=== PATIENT | female | born 2000 | race Caucasian/White ===

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

== ENCOUNTER → 2019-06-21 16:22 | Outpatient (CLI) | payer OTHER, SELFPAY ==
[2017-08-27 14:30] VITALS: BMI 37.3
[2019-06-21 18:43] LABS: Vitamin D,25 Hydroxy 24.5 ng/mL (29.95-100.01)
== END ==
PROVIDERS: PCP Family Medicine; Referring Provider Family Medicine; Visit Provider Family Medicine
DX: E55.9 Vitamin D deficiency, unspecified (principal)
CPT/HCPCS: 36415; 82306

== ENCOUNTER → 2020-01-09 15:59 | Outpatient (CLI) | payer OTHER, SELFPAY ==
[2020-01-09 17:27] LABS: Absolute Lymphocyte Count 1.74 X10^3/uL (0.83-4.51); Absolute Neutrophil Count 7.3 X10^3/uL (2.0-7.7); Basophil# 0.03 X10^3/uL; Basophil% 0.3 % (0-1); Eosinophil# 0.07 X10^3/uL; Eosinophils% 0.7 % (0-5); Hematocrit 39.9 % (37-47); Hemoglobin 12.4 g/dL (12.0-15.0); Lymphocyte # 1.74 X10^3/ul (4.0); Mean Corp Hgb Conc 31.1 g/dL (32-36); Mean Corpuscular Hgb 24.8 pg (27.0-32.0); Mean Platelet Vol. 9.8 fl (6.2-12.0); Monocyte# 0.51 X10^3/uL; Monocyte% 5.3 % (0-10); NRBC Flagged by Analyzer 0 % (0-5); Neutrophil # 7.27 X10^3/uL (2.7-7.7); Neutrophil % 75.3 % (47-70); Platelet Count 367 K/mm3 (150-450); RBC Distribution Width CV 15.4 % (11.6-14.6); RBC Distribution Width SD 44.5 fl (35.1-43.9); Red Blood Count 4.99 M/mm3 (4.2-5.4); White Blood Count 9.7 K/mm3 (4.4-11.0)
[2020-01-09 17:28] LABS: Vitamin B12 446 pg/mL (211-911)
[2020-01-09 17:39] LABS: ALB/GLOB Ratio 0.9 RATIO (0.9-2.4); AST(SGOT) 23 U/L (15-37); Alanine Aminotransfer ALT/SGPT 37 U/L (13-56); Alkaline Phosphatase 63 U/L (45-117); Anion Gap 7 (5-15); BUN 13 mg/dL (7-18); BUN/Creat Ratio 15.9 RATIO (10-20); Chloride 106 mmol/L (98-107); Cholesterol 184 mg/dL (200); Creatinine, Serum 0.82 mg/dL (0.55-1.02); EST Glomerular Filtration Rate 94 mL/min (>60); Est Glom Filt Rate - Afr Amer 113 mL/min (>60); Free T3 2.8 pg/mL (2.18-3.98); Globulin 4.5 g/dL (2.2-4.2); Glucose 85 mg/dL (74-106); High Density Lipoprotein 68 mg/dL; Potassium 3.8 mmol/L (3.5-5.1); Protein, Total 8.5 g/dL (6.4-8.2); Sodium Level 139 mmol/L (136-145); T4 Free Direct 1.13 ng/dL (0.76-1.46); Thyroid Stim Hormone (TSH) 0.58 uIU/mL (0.358-3.74); Triglycerides 96 mg/dL; Very Low Density Lipoprotein 19 mg/dL (5-40)
== END ==
PROVIDERS: PCP Family Medicine; Visit Provider Family Medicine
DX: R53.83 Other fatigue (principal); Z13.220 Encounter for screening for lipoid disorders; Z51.81 Encounter for therapeutic drug level monitoring; Z83.42 Family history of familial hypercholesterolemia; D64.9 Anemia, unspecified
CPT/HCPCS: 36415; 80053; 80061; 82607; 84439; 84443; 84481; 85025

== ENCOUNTER 2020-09-12 10:00 | Outpatient (RCR) | payer OTHER, SELFPAY | END 2020-10-17 23:59 | LOC: IMMUN 10:00 | PROVIDERS: PCP Family Medicine; Referring Provider Family Medicine; Visit Provider Family Medicine | DX: Z23 Encounter for immunization (principal) | CPT/HCPCS: 0001A; 91300 ==

== ENCOUNTER → 2020-12-24 08:31 | Outpatient (CLI) | payer OTHER, SELFPAY ==
[2020-10-31 13:29] VITALS: BMI 37.3
[2020-12-24 10:28] LABS: Absolute Lymphocyte Count 3.08 X10^3/uL (0.83-4.51); Absolute Neutrophil Count 6.1 X10^3/uL (2.0-7.7); Basophil# 0.04 X10^3/uL; Basophil% 0.4 % (0-1); Eosinophil# 0.14 X10^3/uL; Eosinophils% 1.4 % (0-5); Hematocrit 36.1 % (37-47); Hemoglobin 11.2 g/dL (12.0-15.0); Lymphocyte # 3.08 X10^3/ul (0.83-4.51); Lymphocyte % 31.1 % (19-41); Mean Corpuscular Hgb 24.9 pg (27.0-32.0); Mean Corpuscular Volume 80.2 fL (81-99); Mean Platelet Vol. 10.2 fl (6.2-12.0); Monocyte# 0.55 X10^3/uL; Monocyte% 5.6 % (0-10); NRBC Flagged by Analyzer 0 % (0-5); Neutrophil # 6.05 X10^3/uL (2.7-7.7); Neutrophil % 61.1 % (47-70); Platelet Count 328 K/mm3 (150-450); RBC Distribution Width CV 14.9 % (11.6-14.6); RBC Distribution Width SD 43.5 fl (35.1-43.9); White Blood Count 9.9 K/mm3 (4.4-11.0)
[2020-12-24 13:07] LABS: ALB/GLOB Ratio 0.8 RATIO (0.9-2.4); AST(SGOT) 13 U/L (15-37); Alanine Aminotransfer ALT/SGPT 26 U/L (13-56); Albumin, Serum 3.4 g/dL (3.2-5.0); Alkaline Phosphatase 52 U/L (45-117); Anion Gap 7 (5-15); BUN 15 mg/dL (7-18); BUN/Creat Ratio 25.6 RATIO (10-20); Calcium,Total 8.4 mg/dL (8.5-10.1); Chloride 107 mmol/L (98-107); Creatinine, Serum 0.59 mg/dL (0.55-1.02); EST Glomerular Filtration Rate 137 mL/min (>60); Est Glom Filt Rate - Afr Amer 165 mL/min (>60); Free T3 2.9 pg/mL (2.18-3.98); Glucose 87 mg/dL (74-106); Potassium 3.4 mmol/L (3.5-5.1); Prolactin 15.3 ng/mL; Protein, Total 7.4 g/dL (6.4-8.2); Sodium Level 139 mmol/L (136-145); T4 Free Direct 1.04 ng/dL (0.76-1.46); Thyroid Stim Hormone (TSH) 1.98 uIU/mL (0.358-3.74)
[2020-12-28 10:54] LABS: Testosterone Free 2.7 pg/mL (0.0-4.2)
[2020-12-28 21:05] LABS: 17-Hydroxyprogesterone 27 ng/dL (.)
== END ==
PROVIDERS: PCP Family Medicine; Referring Provider Family Medicine; Visit Provider Family Medicine
DX: E03.9 Hypothyroidism, unspecified (principal); E66.9 Obesity, unspecified; N91.5 Oligomenorrhea, unspecified; N93.8 Other specified abnormal uterine and vaginal bleeding; E74.39 Other disorders of intestinal carbohydrate absorption
CPT/HCPCS: 36415; 80053; 82533; 82627; 83498; 84146; 84402; 84403; 84439; 84443; 84481; 85025; 82626

== ENCOUNTER → 2021-01-29 | Outpatient (CLI) | payer OTHER, SELFPAY | END | disposition home or self-care (01) | LOC: LABSPEC 01-30 07:51 | PROVIDERS: Visit Provider Physician Assistant Surgical | DX: J02.9 Acute pharyngitis, unspecified (principal) | CPT/HCPCS: 87635; U0005; U0003 ==

== ENCOUNTER → 2021-09-12 | Outpatient (CLI) | payer OTHER, SELFPAY ==
[2021-09-12 10:28] LABS: Mucous, Urine 0 SEEN /hpf (<or=2+); Red Blood Cells-Urine 0 SEEN /hpf (0-5)
[2021-09-12 10:37] LABS: Color, Urine Yellow (Yellow); Glucose, Dipstick Normal (Normal); Ketone-Dipstick Negative (Negative); Leukocyte Esterase-Dipstick 25 /ul (Negative); Nitrite-Dipstick Negative (Negative); Occult Blood-Urine 10 /ul (Negative); Protein-Dipstick Negative (Negative); Urine Bilirubin Dipstick Negative (Negative); Urine Clarity Sl. Cloudy (Clear); Urine Urobilinogen Normal (Normal)
[2021-09-12 10:43] LABS: Squamous Epithelial Cells - UA 5-10 SEEN /hpf (5-10)
[2021-09-12 10:44] LABS: Bacteria 2+ /hpf (None Seen); White Blood Cells 0-5 SEEN /hpf (0-5)
== END | disposition home or self-care (01) ==
LOC: LABSPEC 10:15
PROVIDERS: Visit Provider Physician Assistant
DX: M54.9 Dorsalgia, unspecified (principal)
CPT/HCPCS: 81001; 87086; 87088

== ENCOUNTER 2022-07-03 10:55 | Day surgery (SDC) | payer OTHER, SELFPAY ==
[2022-07-01 17:01] LABS: Hematocrit 39.1 % (37-47); Hemoglobin 12.1 g/dL (12.0-15.0); Mean Corp Hgb Conc 30.9 g/dL (32-36); Mean Corpuscular Hgb 25.5 pg (27.0-32.0); Mean Corpuscular Volume 82.5 fL (81-99); Mean Platelet Vol. 9.7 fl (6.2-12.0); Platelet Count 330 K/mm3 (150-450); RBC Distribution Width CV 15.3 % (11.6-14.6); RBC Distribution Width SD 46.2 fl (35.1-43.9); Red Blood Count 4.74 M/mm3 (4.2-5.4); White Blood Count 9.9 K/mm3 (4.4-11.0)
--- NOTE | 2022-07-03 07:11 | PCM.HP.BLA ---
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 Denies headache or vision changes, chest pain or shortness of breath, nausea or vomiting, diarrhea or constipation, fevers or chills. 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 Imperforate hymen Surgical history: Denies Medications: None Allergies: NKDA Family history: noncontributory Social history: Denies tobacco, alcohol, drug use Physical exam: Blood pressure 144/71, HR 80, RR 18, Temp 97.8 F, O2 sat 98%on RA General: No acute distress HEENT: Normal cephalic/atraumatic, PERRLA Cardiac: Regular rate and rhythm Respiratory: Clear to auscultation bilaterally Abdomen: Soft, nontender, nondistended Extremities: No edema Neurologic: Cranial nerves II through XII grossly intact, no focal deficits Musculoskeletal: Strength out of 5 throughout extremities Assessment/plan: 22 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 All risk, benefits, alternatives discussed with patient.? Risk include but are not limited to: Risk of bleeding to the point transfusion, infection, injury to surrounding tissue including bowel/bladder/major abdominal vessels, VTE, ICU admission.? Patient aware and consented.?
[2022-07-03 11:23] LABS: Internal QC Validated? YES +Cl - CLEAR BKGD
[2022-07-03 11:26] LABS: Pregnancy, Urine Negative Negative
[2022-07-03] MEDS: Lactated Ringers 1,000 ML 15 ML IV (11:30)
[2022-07-03 11:33] VITALS: BP 144/71; PULSE 80; RESP 18; TEMP 36.6; O2SAT 98; BMI 44.6
--- NOTE | 2022-07-03 12:02 | DCINST_ITS ---
Discharge Instructions Diet Discharge Diet: No restrictions Activity Discharge Activity: Return to Normal Activity and May Shower May resume sexual activity in: 2 weeks Weight Bearing Status: Weight bearing as tolerated Lifting Restrictions: None Dressing / Incision Call your doctor if you observe: Fever of 101 or Higher, Change in Color, Inability to urinate, Using more than 1 pad per hour, Shortness of breath, Dizziness, Swelling in the ankles, Chest pain and Calf discomfort Follow Up Care Please Follow Up With: Anila Graham DO When: 1-2 week postoperative visit Test Results: Test results from this visit will be discussed in further detail at your follow- up appointment, if applicable. Discharge Plan Admission Primary Reason for Your Visit: Removal of hymenal remnant Attending Provider: Anila Graham Primary Care Provider: Cheryl Ortiz Discharge Orders/Prescriptions Prescriptions: New oxycodone 5 mg tablet 5 mg PO Q6H PRN (Reason: pain (scale score 7-10)) 5 Days Qty: 3 0RF Continued bupropion HCl [Wellbutrin SR] 100 mg tablet extended release 12 hr 150 mg PO QAM fluoxetine [Prozac] 40 mg Capsule 40 mg PO DAILY montelukast 10 mg Tablet 10 mg PO DAILY levocetirizine [Xyzal] 5 mg Tablet 5 mg PO DAILY cholecalciferol (vitamin D3) [Vitamin D3] 50 mcg (2,000 unit) Capsule 50 mcg PO DAILY melatonin 5 mg Tablet,Chewable 5 mg PO PRN PRN (Reason: Sleep) Referrals / Follow Up: Cheryl Ortiz DO [Primary Care Provider] -
--- NOTE | 2022-07-03 12:02 | PCM.OPRPT ---
Report of Operation Date of Procedure: 07/03/22 Pre-Operative Diagnosis: Imperforate hymen Post-Operative Diagnosis: Hymenal remnant Surgery/Procedure Performed:: Exam under anesthesia, excision of hymenal remnant Description of Surgical Findings:: Normal-appearing labia. Excess hymenal tissue at 10 to 11 o'clock position. No septate hymen noted. Normal-appearing cervix and vagina. 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 All risk, benefits, alternatives discussed with patient.? Risk include but are not limited to: Risk of bleeding to the point transfusion, infection, injury to surrounding tissue including bowel/bladder/major abdominal vessels, VTE, ICU admission.? Patient aware and consented.? Procedure: Patient taken the operating room and placed under anesthesia. Patient required LMA placement due to amount of sedation required. Patient placed in the dorsal lithotomy position prepped and draped in the usual sterile fashion. Bladder drained 50 cc clear urine, red rubber left in urethra. Exam completed. Noting hymenal remnant 10 to 11 o'clock position. Excess tissue excised with Metzenbaum scissors. Vaginal mucosa reapproximated with suture, hemostatic. Vagina and cervix normal in appearance. Urine output: 50 cc Complications None
[2022-07-03 13:02] VITALS: BP 122/92; BP 144/71; PULSE 74; RESP 18; TEMP 35.9; O2SAT 94
[2022-07-03 13:16] VITALS: BP 126/93; BP 144/71; PULSE 76; RESP 12; O2SAT 96
[2022-07-03 13:31] VITALS: BP 131/90; BP 144/71; PULSE 68; RESP 18; TEMP 36.3; O2SAT 97
[2022-07-03] MEDS: Acetaminophen 500 MG Tablet 1000 MG PO (14:04)
[2022-07-03 14:08] VITALS: BP 120/59; BP 144/71; PULSE 65; RESP 18; TEMP 36.8; O2SAT 100
== END 2022-07-03 14:43 | disposition home or self-care (01) ==
PROVIDERS: Anesthesiology; PCP Family Medicine; Referring Provider Student in an Organized Health Care Education/Training Program; Visit Provider Student in an Organized Health Care Education/Training Program
PROC: (CPT 56700; principal; 2022-07-03 12:15)
DX: Q52.3 Imperforate hymen (principal); Z68.41 Body mass index [BMI] 40.0-44.9, adult; E66.9 Obesity, unspecified; F98.8 Other specified behavioral and emotional disorders with onset usually occurring in childhood and adolescence; K21.9 Gastro-esophageal reflux disease without esophagitis; Z79.899 Other long term (current) drug therapy; F32.A Depression, unspecified; F41.9 Anxiety disorder, unspecified
CPT/HCPCS: 56700; 00940; 36415; 81025; 85027; 86850; 86900; 86901; J7120; J2405

== ENCOUNTER → 2022-07-18 | Outpatient (CLI) | payer OTHER, SELFPAY ==
[2022-07-30 21:31] LABS: HPV Reflexed? NOT INDICATED
== END | disposition home or self-care (01) ==
LOC: LABSPEC 14:51
PROVIDERS: PCP Family Medicine; Visit Provider Student in an Organized Health Care Education/Training Program
DX: Z12.4 Encounter for screening for malignant neoplasm of cervix (principal)
CPT/HCPCS: 88175; G0145

== ENCOUNTER 2023-04-24 10:30 | Outpatient (RCR) | payer OTHER, SELFPAY ==
--- NOTE | 2023-02-02 13:00 | HP.PTEVAL_ITS ---
Patient's Visit Information Visit Information Visit Information: DIOGO CASTANO is a 23 year old F referred to Physical Therapy by Dr. Cheryl Ortiz DO with a diagnosis of LOW BACK, KNEE AND GROIN PAIN. Date of Evaluation: 02/02/23 Physical Therapist: Stephanie Lopez PT, Cert MDT Visit Plan Frequency: 2-3x /Week Duration: 4-6 Months Plan: *CHECK AUTH NEXT VISIT: RECORD # OF VISITS APPROVED AND EXPIRATION DATE. CHECK CODES APPROVED WITH POC* AQUATIC THERAPY FOR PAIN RELEIF, POSTURE CORRECTION/STRENGTHENING, INSTRUCTION IN APPROPRIATE BODY MECHANICS AND ACTIVITY MODIFICATIONS. DLS STARTING WITH A NEUTRAL SPINE PROGRESSING ROM TOLERATED. ADRIANNE LE ROM, STRETCHING AND STRENGTHENING. HEP INSTRUCTION. Subjective Subjective: Work/Leisure: CURRENTLY NOT WORKING. PATIENT REPORTS SHE IS BETWEEN JOBS. 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 PATIENT REPORTS SHE WAS OUT OF THE COUNTRY IN THE [place] FROM MID NOVEMBER UNTIL 01/16/23 SO WAS UNABLE TO WORK DURING THAT TIME. LIVES WITH PARENTS. 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 Disability: NO Present symptoms: ADRIANNE LOW BACK PAIN L > RIGHT. ADRIANNE GROIN/FRONT OF HIP PAIN R > LEFT. ADRIANNE KNEE PAIN R > LEFT. ADRIANNE FOOT AND ANKLE PAIN TOO L > RIGHT. ADRIANNE TOE NUMBNESS L > R. Present since: MIDDLE SCHOOL. Pain Scale: WORST 4/10, LEAST 1/10 Currently: 1/10 Is it getting better, worse or staying the same: GETTING WORSE Commenced as a result of: PUBERTY OR HAVING FLAT FEET. PATIENT REPORTS HER PAIN STARTED WITH FOOT PAIN. Worse: BENDING OVER, WALKING FOR 15 TO 20 MIN, TAKING A SHOWER, STRETCHING ON FLOOR AND ARCHING BACK BACKWARDS, SQUATTING Better: NOT MOVING. Disturbed sleep: NO Previous history/Previous treatment: CUSTOM ORTHOTICS. NO SURGERIES OR INJECTIONS. PHYSICAL THERAPY FOR SCIATICA ABOUT 4 YEARS AGO WITH BENEFIT. NO CHIROPRACTIC. NO PRESCRIPTION MEDICATION. DOES TAKE OTC IBUPROFEN NEEDED. Coughing/sneezing/straining: POSITIVE Gait: PATIENT REPORTS BACK AND R GROIN PAIN START AFTER ABOUT 15 TO 20 MINUTES OF WALKING. NO AD'S. 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 STATES DR. ORTIZ IS AWARE. Imaging: NONE RECENT PMH/Recent major surgery: ANXIETY AND DEPRESSION. ALLERGIES. Objective Objective: Sitting/Standing Posture: POOR. NORMAL LORDOSIS. NO RELEVANT LATERAL SHIFT. Active Correction of posture: WORSE. DOES NOT MAINTAIN BUT ABLE TO FULLY CORRECT. Other Observations: INDEP GAIT AND TRANSFERS. INDEP TRANSFERS SIT TO STAND AND REVERSE WITHOUT UE ASSIST. INDEP GAIT WITH GOOD CADANCE WITHOUT AD OR LOB. Sensory deficit: ADRIANNE LE LIGHT TOUCH SENSATION GROSSLY INTACT AND SYMMETRICAL. ROM deficit: ADRIANNE HS, HIP ADDUCTOR AND GASTROC-SOLEUS COMPLEX TIGHTNESS. Motor deficit: ADRIANNE LE'S GROSSLY 5/5 WITH MMT'ING EXCEPT R HIP 4-/5 AND L 4/5. Dural Signs: NEGATIVE ADRIANNE LE'S. Lumbar mvmt loss: flex - MIN TO MOD ext - MIN R SG -MIN L SG - MIN PATIENT C/O LOW BACK PAIN WITH LUMBAR ROM TESTING ALL PLANES. Core strength: POOR Postural strength: POOR Palpation: TENDERNESS WITH LIGHT PALPATION OF ADRIANNE LUMBAR AND SACRAL REGIONS. NO ACUTE HIP OR KNEE TENDERNESS. Balance/Special Test Scores Oswestry Low Back Score: 4 Goals Goal 1:: DECREASE C/O LOW BACK AND ADRIANNE LE SX'S. Goal Time Frame: 4-6 Weeks Goal 2:: IMPROVE PERSONAL CARE, LIFTING, STANDING, AND WORK/HOMEMAKING FUNCTION Goal Time Frame: 4-6 Weeks Goal 3:: INSTRUCT IN PROPHYLAXIS Goal Time Frame: 4-6 Weeks Anticipated Interventions Patient/Client Instruction: Educate patient on: Condition, Plan of Care and Risk Factors For the Purpose of:: To improve self management Therapeutic Exercise to Include: Strength training, Body mechanics, Postural training, Flexibilty training, Neuromotor development, In an aquatic setting and Dynamic Lumbar Stabilization For the Purpose of:: To decrease pain, To increase ROM, To improve muscle performance and motor function, To increase tolerance to activity/condition/position and To improve ability of physical actions for home/community/work/leisure Text: Thank you for the opportunity to evaluate your patient. For Medicare and Medicare HMO plans, please review the plan of care and approve it. It will need to be FAXED BACK to us at [phone] for Medicare purposes. For Medicare only, by signing this I certify the plan of care. Please let me know if there are questions or concerns regarding this plan of care. Physician Signature: Date:
--- NOTE | 2023-03-03 10:39 | HP.PTREVAL ---
Re-Evaluation Intro: Dr. Cheryl Ortiz, DO, It has been my pleasure to treat DIOGO CASTANO over the last 8 visits for LOW BACK, KNEE AND GROIN PAIN. Please see the progress note below for an update on the physical therapy plan of care! Subjective Subjective: PATIENT REPORTS THAT WHEN SHE GETS PAIN SHE CAN WORK THROUGH IT BETTER NOW. SHE STATES THE PAIN PAIN ISN'T INTENSE. I THINK I HAVE SOME OF THE RESOURCES NOW TO GO ON MY OWN WITH THE EX'S. SHE STATES SHE ALSO THINKS MORE THERAPY MIGHT HELP MORE AND SHE TALKED TO HER DAD ABOUT IT AND HE SAID SHE COULD CONTINUE (SHE STATES SHE IS ON HIS INSURANCE). PATIENT REPORTS WATER THERAPY HAS BEEN HELPING HER MORE THAN ANYTHING ELSE HAS HELPED HER PAIN SO FAR IN THE PAST. SHE STATES SHE THOUGH WEIGHT LOSS WOULD HELP BUT SHE THINKS IT MADE IT WORSE. SHE ALSO STATES PAIN MEDICINE HASN'T HELPED. PATIENT REPORTS SHE FEELS GOOD IN THE WATER AND LIKES THE WATER. SHE STATES SHE WOULD CONSIDER DOING WATER EX ON HER OWN WHEN SHE IS DONE WITH THEREAPY. Objective Objective/Function: PATIENT WAS SEEN TODAY FOR RE-ASSESSMENT OF PROGRESS TOWARD THE SET PT GOALS AND THE NEED FOR FURTHER PHYSICAL THERAPY VS READINESS FOR DISCHARGE. PATIENT HAS MADE PROGRESS TOWARD 2 OF 3 SET GOALS AND IS A GOOD CANDIDATE TO CONTINUE PT BASED ON ROOM FOR FURTHER IMPROVEMENT. SHE DEMO'S IMPROVED LE STRENGTH AND INCREASED LUMBAR ROM. PATIENT IS AGREEABLE TO CONTINUED PT PER POC BELOW. UPON EXAM TODAY: ROM deficit: MILD ADRIANNE HS, HIP ADDUCTOR AND GASTROC-SOLEUS COMPLEX TIGHTNESS. Motor deficit: ADRIANNE LE'S GROSSLY 5/5 WITH MMT'ING EXCEPT ADRIANNE HIPS 4/5. Dural Signs: NEGATIVE ADRIANNE LE'S. Lumbar mvmt loss: flex - MIN ext - NIL R SG -MIN L SG - MIN PATIENT C/O MILD LBP WITH LUMBAR EXT ROM TESTING ONLY TODAY. Core strength: POOR Postural strength: POOR Palpation: MILD CENTRAL AND R L5S1 REGION TENDERNESS TODAY. NO ACUTE HIP OR KNEE TENDERNESS. Plan Plan Plan: *WORK TOWARD INDEP WATER EX PROGRAM* CONT AQUATIC THERAPY 2X'S A WK X 10 VISITS FOR PAIN RELEIF, POSTURE CORRECTION/STRENGTHENING, INSTRUCTION IN APPROPRIATE BODY MECHANICS AND ACTIVITY MODIFICATIONS. DLS STARTING WITH A NEUTRAL SPINE PROGRESSING ROM TOLERATED. ADRIANNE LE ROM, STRETCHING AND STRENGTHENING. HEP INSTRUCTION. Balance/Gait/Functional tests Balance/Special Test Scores Oswestry Low Back Score: 7 Goals Goals Goal 1:: DECREASE C/O LOW BACK AND ADRIANNE LE SX'S. Goal Time Frame: 4-6 Weeks Goal Progress: Progressing Goal 2:: IMPROVE PERSONAL CARE, LIFTING, STANDING, AND WORK/HOMEMAKING FUNCTION Goal Time Frame: 4-6 Weeks Goal Progress: Not Progressing Goal 3:: INSTRUCT IN PROPHYLAXIS Goal Time Frame: 4-6 Weeks Goal Progress: Progressing Anticipated Interventions Anticipated Interventions Patient/Client Instruction: Educate patient on: Condition, Plan of Care and Risk Factors For the Purpose of:: To improve self management Therapeutic Exercise to Include: Strength training, Body mechanics, Postural training, Flexibilty training, Neuromotor development, In an aquatic setting and Dynamic Lumbar Stabilization For the Purpose of:: To decrease pain, To increase ROM, To improve muscle performance and motor function, To increase tolerance to activity/condition/position and To improve ability of physical actions for home/community/work/leisure Re-Evaluation Ending Re-evaluation ending: Please do not hesitate to contact me at [phone] by phone or if you have questions or concerns regarding this new plan of care! Sincerely, Stephanie Lopez, PT, Cert MDT
--- NOTE | 2023-04-24 10:59 | HP.PTDCSUM ---
Discharge Summary D/C summary: It has been my pleasure to treat DIOGO CASTANO referred by Dr. Cheryl Ortiz DO, with the diagnosis of LOW BACK, KNEE AND GROIN PAIN for a total of 18 visit(s). Discharge Date: 04/24/23 Please see the following information for a summary of their discharge status. Subjective Subjective: PATIENT STATES SHE IS GLAD SHE CONTINUED THERAPY AND NOW SHE HAS THE EX'S SHE CAN DO ON HER OWN. Pain Low back: Pain Intensity (Out of 10): 5 R groin: Pain Intensity (Out of 10): 0 LLE: Pain Intensity (Out of 10): 5 Overall Improvement % Improvement: 50 Objective Objective/Function: Objective/Function: PATIENT WAS SEEN TODAY FOR RE-ASSESSMENT OF PROGRESS TOWARD THE SET PT GOALS AND THE NEED FOR FURTHER PHYSICAL THERAPY VS READINESS FOR DISCHARGE. ALL GOALS HAVE BEEN MET AND PATIENT IS INDEP WITH POOL AND HOME EX PROGRAMS. SHE IS APPRORIATE FOR AND AGREABLE TO DISCHARGE. UPON EXAM TODAY: Motor deficit: ADRIANNE LE'S GROSSLY 5/5 WITH MMT'ING. Dural Signs: NEGATIVE ADRIANNE LE'S. Lumbar mvmt loss: flex - NIL ext - NIL R SG -NIL L SG - NIL PATIENT DENIES PAIN WITH LUMBAR ROM TESTING ALL PLANES. Core strength: FAIR Postural strength: FAIR Palpation: NO ACUTE LOWER THORACIC LUMBAR, SACRAL OR HIP TENDERNESS. PATIENT CONTINUES TO HAVE ADRIANNE CALF TIGHTNESS AND HAS STRETCHES FOR HOME. Goals Goal 1:: DECREASE C/O LOW BACK AND ADRIANNE LE SX'S. Goal Progress: Goal Met Goal 2:: IMPROVE PERSONAL CARE, LIFTING, STANDING, AND WORK/HOMEMAKING FUNCTION Goal Progress: Goal Met Goal 3:: INSTRUCT IN PROPHYLAXIS Goal Progress: Goal Met Plan Plan: D/C D/C Information d/c sentence: If there are questions or concerns regarding this patient's physical therapy, please feel free to call me at [phone]. Thank you for the referral of this patient. Sincerely, Stephanie Lopez, PT, Cert MDT Balance/Gait/Functional tests Balance/Special Test Scores Oswestry Low Back Score: 4 Improvement % Improvement: 50
== END 2023-04-24 19:00 | disposition home or self-care (01) ==
LOC: PT 10:30
PROVIDERS: PCP Family Medicine; Visit Provider Family Medicine
DX: M54.50 Low back pain, unspecified (principal); M25.551 Pain in right hip; M25.552 Pain in left hip; M25.561 Pain in right knee; M25.562 Pain in left knee
CPT/HCPCS: 97113; 97162; 97164

== ENCOUNTER 2023-09-18 16:18 | Emergency (ER) | payer OTHER, SELFPAY ==
[2023-09-18 16:18] VITALS: BP 112/82; PULSE 87; RESP 14; TEMP 37.2; O2SAT 97; BMI 35.7
--- NOTE | 2023-09-18 17:42 | CT_ITS ---
EXAM: CT ABDOMEN AND PELVIS WITHOUT INTRAVENOUS CONTRAST CLINICAL INDICATION: L flank Pain TECHNIQUE: Helically acquired images were obtained of the abdomen and pelvis without intravenous contrast. This CT exam was performed using one or more of the following dose reduction techniques: automated exposure control, adjustment of the mA and/or kV according to patient size, and/or use of iterative reconstruction technique. COMPARISON: No relevant prior studies available. FINDINGS: LOWER THORAX: Unremarkable. Lung bases are clear. No cardiomegaly. No significant pericardial effusion. ABDOMEN: LIVER: Unremarkable. Homogeneous. GALLBLADDER AND BILE DUCTS: Unremarkable. No calcified gallstones. No gallbladder distention or wall edema. No intra- or extrahepatic biliary ductal dilation. PANCREAS: Unremarkable. No focal cystic mass. SPLEEN: Unremarkable. Normal size without focal cystic or solid mass. ADRENALS: Unremarkable. No nodules. KIDNEYS AND URETERS: Mild left-sided hydronephrosis and hydroureter. Normal renal size and position. STOMACH AND BOWEL: Unremarkable. No stomach or bowel distention. No focal inflammatory change. PELVIS: APPENDIX: No evidence of acute appendicitis. BLADDER: There is a tiny 1 mm calcification in the bladder at the level of the left orifice. REPRODUCTIVE: Unremarkable as visualized. No mass. ABDOMEN and PELVIS: INTRAPERITONEAL SPACE: There is a mild amount of free fluid in the pelvis. No free air. BONES/JOINTS: Unremarkable. No suspicious lytic or blastic abnormality. SOFT TISSUES: Unremarkable. No discrete abdominal or pelvic wall hernia. VASCULATURE: Unremarkable. Abdominal aorta is non-dilated. LYMPH NODES: Unremarkable. No enlarged lymph nodes. CT/Abdomen/Pelvis without Cont IMPRESSION: Obstruction of the left collecting system due to a 1 mm stone in the bladder at the level of the left orifice. There is mild left-sided hydronephrosis and hydroureter. Electronically Signed: Jerome Masters MD at 19:33 EDT ,
[2023-09-18 18:18] VITALS: BP 109/99; PULSE 82; RESP 16; O2SAT 98
[2023-09-18] MEDS: Ketorolac 30 MG/ML Syringe 15 MG IV (18:18)
[2023-09-18] MEDS: 0.9% Normal Saline (1000mL) 1,000 ML 1000 ML IV (18:18)
[2023-09-18] MEDS: Ondansetron 4 MG/2 ML Vial IV (18:18)
[2023-09-18] MEDS: Morphine 4 MG/ML Syringe IV (18:19)
[2023-09-18 18:28] LABS: Absolute Lymphocyte Count 1.01 X10^3/uL (0.83-4.51); Absolute Neutrophil Count 7.7 X10^3/uL (2.0-7.7); Basophil# 0.03 X10^3/uL; Basophil% 0.3 % (0-1); Eosinophil# 0.05 X10^3/uL; Eosinophils% 0.5 % (0-5); Hematocrit 37.2 % (37-47); Lymphocyte # 1.01 X10^3/ul (0.83-4.51); Mean Corp Hgb Conc 32.3 g/dL (32-36); Mean Corpuscular Volume 83.8 fL (81-99); Mean Platelet Vol. 10.2 fl (6.2-12.0); Monocyte# 0.39 X10^3/uL; Monocyte% 4.2 % (0-10); NRBC Flagged by Analyzer 0 % (0-5); Neutrophil # 7.67 X10^3/uL (2.7-7.7); Neutrophil % 83.6 % (47-70); Platelet Count 244 K/mm3 (150-450); RBC Distribution Width CV 13.5 % (11.6-14.6); RBC Distribution Width SD 41.6 fl (35.1-43.9); Red Blood Count 4.44 M/mm3 (4.2-5.4); White Blood Count 9.2 K/mm3 (4.4-11.0)
--- NOTE | 2023-09-18 18:34 | EDS_ITS ---
HPI <RITA Caraballo - Last Filed: 09/18/23 21:12> History of Present Illness Chief Complaint: Abd Pain Narrative Narrative: Patient presenting today due to left flank pain that radiates to her left lower quadrant and left groin that started around 3 PM. The pain has been constant and gradually worsening. She denies any history of kidney stones or previous abdominal surgeries. She reports that she has had a few episodes of nausea and vomiting due to the pain. She is currently on her menstrual period. She denies any fevers, chills, hematemesis, diarrhea, and urinary symptoms. PFSH <RITA Caraballo - Last Filed: 09/18/23 21:12> [facility] Medical History Abdominal pain Acne ADD (attention deficit disorder) Anxiety Cat allergies Depression Dust allergy Fatigue History of pain when walking History of palpitations Impacted cerumen of both ears Lab test negative for COVID-19 virus Leg cramps Migraine headache Non-smoker Restless legs Shortness of breath Shortness of breath on exertion Strain, back Wears glasses Home Medications bupropion HCl 100 mg tablet,12 hr sustained-release (Wellbutrin SR) 150 mg PO QAM 07/30/17 [History Last Taken Unknown] cholecalciferol (vitamin D3) 50 mcg (2,000 unit) capsule (Vitamin D3) 50 mcg PO DAILY 07/02/22 [History Last Taken Unknown] fluoxetine 40 mg capsule (Prozac) 40 mg PO DAILY 07/02/22 [History Last Taken Unknown] levocetirizine 5 mg tablet (Xyzal) 5 mg PO DAILY 07/02/22 [History Last Taken Unknown] melatonin 5 mg chewable tablet 5 mg PO PRN PRN Sleep 07/02/22 [History Last Taken Unknown] montelukast 10 mg tablet 10 mg PO DAILY 07/02/22 [History Last Taken Unknown] oxycodone 5 mg tablet 5 mg PO Q6H PRN pain (scale score 7-10) 5 days #3 tabs 07/03/22 [Rx Last Taken Unknown] dexamethasone 6 mg tablet 6 mg PO DAILY #5 tabs 05/06/23 [Rx Last Taken Unknown] Allergy/AdvReac Type Severity Reaction Status Date / Time No Known Allergies Allergy Verified 09/18/23 16:19 Surgical History No history of previous surgery Social History Smoking Status: Never smoker alcohol intake: never ROS <RITA Caraballo - Last Filed: 09/18/23 21:12> ROS ED Constitutional Constitutional ED: Denies chills or fever(s) Cardiovascular Cardiovascular: Denies chest pain Respiratory/Chest Respiratory/Chest: Denies cough or dyspnea Gastrointestinal Gastrointestinal: Reports abdominal pain, nausea and vomiting; Denies constipation or diarrhea Genitourinary Genitourinary ED: Denies dysuria, hematuria or urinary urgency Musculoskeletal Musculoskeletal: Reports back pain Integumentary Denies rash Neurologic Neurologic: Denies weakness EXAM <RITA Caraballo - Last Filed: 09/18/23 21:12> Physical Exam Const Vital Signs: 09/18/23 16:18 09/18/23 18:18 09/18/23 20:00 Temperature 99 F Temperature Source Temporal Pulse Rate 87 82 71 Respiratory Rate 14 16 14 Blood Pressure 112/82 H 109/99 H 130/64 H Blood Pressure Mean 92 102 86 Pulse Ox 97 98 97 Oxygen Delivery Method Room Air Room Air Room Air 09/18/23 20:49 Temperature 98.1 F Temperature Source Pulse Rate 91 Respiratory Rate 16 Blood Pressure 138/62 H Blood Pressure Mean 87 Pulse Ox 98 Oxygen Delivery Method <Dr. Franklyn Childers MD - Last Filed: 09/19/23 00:46> Physical Exam Const Vital Signs: 09/18/23 16:18 09/18/23 18:18 09/18/23 20:00 Temperature 99 F Temperature Source Temporal Pulse Rate 87 82 71 Respiratory Rate 14 16 14 Blood Pressure 112/82 H 109/99 H 130/64 H Blood Pressure Mean 92 102 86 Pulse Ox 97 98 97 Oxygen Delivery Method Room Air Room Air Room Air 09/18/23 20:49 Temperature 98.1 F Temperature Source Pulse Rate 91 Respiratory Rate 16 Blood Pressure 138/62 H Blood Pressure Mean 87 Pulse Ox 98 Oxygen Delivery Method MDM <RITA Caraballo - Last Filed: 09/18/23 21:12> MDM MDM Narrative Medical decision making narrative: Patient presenting today with left-sided flank pain that started around 3 PM. She does appear to be uncomfortable. She denies any history of kidney stones but examination is concerning for a kidney stone. Labs will be obtained to rule out leukocytosis, anemia, electrolyte abnormality, SANTANA, and UTI. CT scan of the abdomen and pelvis will be obtained to rule out kidney stone, ovarian cyst, diverticulitis, and other etiology. She was given IV fluids, Toradol, Zofran, and morphine. She does have a 1 mm stone in the bladder. On reexamination she reports improvement of her symptoms. She does not have a UTI. Given her stone has passed, she will be discharged home in stable condition. She can alternate Tylenol and ibuprofen for any residual pain as needed. She is comfortable with plan. Lab Data Attestation: I reviewed the patient's lab results. Labs: Laboratory Results - last 24 hr 09/18/23 09/18/23 18:10 19:40 WBC 9.2 RBC 4.44 Hgb 12.0 Hct 37.2 MCV 83.8 MCH 27.0 MCHC 32.3 RDW Std Deviation 41.6 RDW Coeff of Loli 13.5 Plt Count 244 MPV 10.2 Immature Gran % (Auto) 0.400 Neut % (Auto) 83.6 H Lymph % (Auto) 11.0 L [place] % (Auto) 4.2 Eos % (Auto) 0.5 Baso % (Auto) 0.3 Absolute Neuts (auto) 7.7 Absolute Lymphs (auto) 1.01 Nucleated RBC % 0 Sodium 139 Potassium 4.1 Chloride 107 Carbon Dioxide 25.0 Anion Gap 7 BUN 13 Creatinine 0.92 Estim Creat Clear Calc 132.48 Est GFR (MDRD) Af Amer 96 Est GFR (MDRD) Non-Af 80 BUN/Creatinine Ratio 14.2 Glucose 111 H Calcium 8.9 Serum , Qual NEGATIVE Urine Color Yellow Urine Clarity Clear Urine pH 7.0 Ur Specific [place] 1.010 Urine Protein Negative Urine Glucose (UA) Normal Urine Ketones 15 H Urine Occult Blood 250 H Urine Nitrite Negative Urine Bilirubin Negative Urine Urobilinogen Normal Ur Leukocyte Esterase Negative Urine RBC 10-25 SEEN Urine WBC 0 SEEN Ur Squamous Epith Cells 0-5 SEEN Urine Bacteria 0 SEEN Urine Mucus RARE Radiography Diagnostic Testing: Clinical Impression(s) from Imaging Studies Abdomen/Pelvis CT 09/18/23 17:42 IMPRESSION: Obstruction of the left collecting system due to a 1 mm stone in the bladder at the level of the left orifice. There is mild left-sided hydronephrosis and hydroureter. Electronically Signed: Jerome Masters MD at 19:33 EDT , <Dr. Franklyn Childers MD - Last Filed: 09/19/23 00:46> [facility] MDM Narrative Medical decision making narrative: Patient presenting today with left-sided flank pain that started around 3 PM. She does appear to be uncomfortable. She denies any history of kidney stones but examination is concerning for a kidney stone. Labs will be obtained to rule out leukocytosis, anemia, electrolyte abnormality, SANTANA, and UTI. CT scan of the abdomen and pelvis will be obtained to rule out kidney stone, ovarian cyst, diverticulitis, and other etiology. She was given IV fluids, Toradol, Zofran, and morphine. She does have a 1 mm stone in the bladder. On reexamination she reports improvement of her symptoms. She does not have a UTI. Given her stone has passed, she will be discharged home in stable condition. She can alternate Tylenol and ibuprofen for any residual pain as needed. She is comfortable with plan. I have personally performed a face to face assessment of the patient and have reviewed the HUSAM Note. I performed a substantive portion of the visit including all aspects of the following. My ruiz findings include: History is remarkable for left flank pain. She had pain also in the left vaginal region. She denies dysuria, frequency, urgency or hematuria. She does report nausea and vomiting. She denies fever, chills night sweats. Exam is remarkable patient unable to find position of comfort. There is no CVA tenderness. There is no left-sided abdominal pain. There is no jing lymphadenopathy. Medical Decision Making differential diagnosis would include ruptured ovarian cyst, ovarian torsion, ectopic , ureteral stone and pain of unknown etiology. Other additions or changes: CT was reviewed by me. Patient has a small 1 mm stone noted in the bladder. Plan is to discharge to home Lab Data Labs: Laboratory Results - last 24 hr 09/18/23 09/18/23 18:10 19:40 WBC 9.2 RBC 4.44 Hgb 12.0 Hct 37.2 MCV 83.8 MCH 27.0 MCHC 32.3 RDW Std Deviation 41.6 RDW Coeff of [place] 13.5 Plt Count 244 MPV 10.2 Immature Gran % (Auto) 0.400 Neut % (Auto) 83.6 H Lymph % (Auto) 11.0 L [place] % (Auto) 4.2 Eos % (Auto) 0.5 Baso % (Auto) 0.3 Absolute Neuts (auto) 7.7 Absolute Lymphs (auto) 1.01 Nucleated RBC % 0 Sodium 139 Potassium 4.1 Chloride 107 Carbon Dioxide 25.0 Anion Gap 7 BUN 13 Creatinine 0.92 Estim Creat Clear Calc 132.48 Est GFR (MDRD) Af Amer 96 Est GFR (MDRD) Non-Af 80 BUN/Creatinine Ratio 14.2 Glucose 111 H Calcium 8.9 Serum , Qual NEGATIVE Urine Color Yellow Urine Clarity Clear Urine pH 7.0 Ur Specific [place] 1.010 Urine Protein Negative Urine Glucose (UA) Normal Urine Ketones 15 H Urine Occult Blood 250 H Urine Nitrite Negative Urine Bilirubin Negative Urine Urobilinogen Normal Ur Leukocyte Esterase Negative Urine RBC 10-25 SEEN Urine WBC 0 SEEN Ur Squamous Epith Cells 0-5 SEEN Urine Bacteria 0 SEEN Urine Mucus RARE Radiography Diagnostic Testing: Clinical Impression(s) from Imaging Studies Abdomen/Pelvis CT 09/18/23 17:42 IMPRESSION: Obstruction of the left collecting system due to a 1 mm stone in the bladder at the level of the left orifice. There is mild left-sided hydronephrosis and hydroureter. Electronically Signed: Jerome Masters MD at 19:33 EDT , Discharge Plan Triage Chief Complaint: Abd Pain ED Midlevel Provider: Kim Christianson ED Provider: Franklyn Childers Dx/Rx/DC Orders Clinical Impression: Hydronephrosis with urinary obstruction due to ureteral calculus, Nausea & vomiting Instructions: ED Kidney Stone, Passed Prescriptions: No Action bupropion HCl [Wellbutrin SR] 100 mg tablet extended release 12 hr 150 mg PO QAM dexamethasone 6 mg tablet 6 mg PO DAILY Qty: 5 0RF fluoxetine [Prozac] 40 mg Capsule 40 mg PO DAILY montelukast 10 mg Tablet 10 mg PO DAILY levocetirizine [Xyzal] 5 mg Tablet 5 mg PO DAILY cholecalciferol (vitamin D3) [Vitamin D3] 50 mcg (2,000 unit) Capsule 50 mcg PO DAILY melatonin 5 mg Tablet,Chewable 5 mg PO PRN PRN (Reason: Sleep) oxycodone 5 mg tablet 5 mg PO Q6H PRN (Reason: pain (scale score 7-10)) 5 Days Qty: 3 0RF Primary Care Provider: Cheryl Ortiz Referrals: Cheryl Ortiz DO [Primary Care Provider] - 5-7 Days Activity Restrictions/Additional Instructions: Alternate Tylenol and ibuprofen for your pain as needed. Disposition Disposition: Home, Self Care Discharge Date/Time: 09/18/23 20:57
[2023-09-18 18:42] LABS: Anion Gap 7 (5-15); BUN 13 mg/dL (7-18); BUN/Creat Ratio 14.2 RATIO (10-20); Calcium,Total 8.9 mg/dL (8.5-10.1); Chloride 107 mmol/L (98-107); Creatinine, Serum 0.92 mg/dL (0.55-1.02); EST Glomerular Filtration Rate 80 mL/min (>60); Est Glom Filt Rate - Afr Amer 96 mL/min (>60); Estimated Creatinine Clearance 132.48 ml/min; Glucose 111 mg/dL (74-106); Potassium 4.1 mmol/L (3.5-5.1); Sodium Level 139 mmol/L (136-145)
[2023-09-18 18:43] LABS: Internal QC Validated? YES +Cl - CLEAR BKGD; Pregnancy, Serum, hCG Quali. NEGATIVE Negative
[2023-09-18 20:00] VITALS: BP 130/64; PULSE 71; RESP 14; O2SAT 97
[2023-09-18 20:00] LABS: Bacteria 0 SEEN /hpf (None Seen); White Blood Cells 0 SEEN /hpf (0-5)
[2023-09-18 20:17] LABS: Color, Urine Yellow (Yellow); Glucose, Dipstick Normal (Normal); Ketone-Dipstick 15 mg/dl (Negative); Leukocyte Esterase-Dipstick Negative /ul (Negative); Nitrite-Dipstick Negative (Negative); Occult Blood-Urine 250 /ul (Negative); Protein-Dipstick Negative (Negative); Urine Bilirubin Dipstick Negative (Negative); Urine Clarity Clear (Clear); Urine Urobilinogen Normal (Normal)
[2023-09-18 20:23] LABS: Mucous, Urine RARE /hpf (<or=2+); Red Blood Cells-Urine 10-25 SEEN /hpf (0-5); Squamous Epithelial Cells - UA 0-5 SEEN /hpf (5-10)
[2023-09-18 20:49] VITALS: BP 138/62; PULSE 91; RESP 16; TEMP 36.7; O2SAT 98
[2023-09-18] MEDS: Ibuprofen 600 MG Tablet PO (20:54)
== END 2023-09-18 20:57 | disposition home or self-care (01) ==
PROVIDERS: Physician Assistant; Emergency Provider Emergency Medicine; PCP Family Medicine; Visit Provider Emergency Medicine
DX: N13.2 Hydronephrosis with renal and ureteral calculous obstruction (principal); R11.2 Nausea with vomiting, unspecified; F32.A Depression, unspecified; Z79.899 Other long term (current) drug therapy
CPT/HCPCS: 74176; 80048; 81001; 84703; 85025; 99282; J7030; A4216; J2405

== ENCOUNTER → 2025-01-11 | Outpatient (CLI) | payer BC, SELFPAY | END | disposition home or self-care (01) | LOC: LABSPEC 14:31 | PROVIDERS: PCP Family Medicine; Visit Provider Nurse Practitioner | DX: R30.0 Dysuria (principal) | CPT/HCPCS: 87086; 87088; 87186 ==

== ENCOUNTER → 2025-04-05 | Outpatient (CLI) | payer BC, SELFPAY ==
[2025-04-05 15:23] LABS: Hematocrit 33.2 % (37-47); Hemoglobin 10.8 g/dL (12.0-15.0); Immature Granulocytes Count 0.020 X10^3/uL (0.0-0.0); Mean Corp Hgb Conc 32.5 g/dL (32-36); Mean Corpuscular Volume 82.2 fL (81-99); Mean Platelet Vol. 10.0 fl (6.2-12.0); NRBC Flagged by Analyzer 0 % (0-5); Platelet Count 218 K/mm3 (150-450); RBC Distribution Width CV 13.7 % (11.6-14.6); RBC Distribution Width SD 41.1 fl (35.1-43.9); Red Blood Count 4.04 M/mm3 (4.2-5.4); White Blood Count 5.7 K/mm3 (4.4-11.0)
[2025-04-05 16:35] LABS: AST(SGOT) 16 U/L (<=31); Alanine Aminotransfer ALT/SGPT 14 U/L (<=34); Albumin, Serum 4.3 g/dL (3.5-5.0); Alkaline Phosphatase 40 U/L (35-104); Anion Gap 12 (5-15); BUN 14 mg/dL (4-19); BUN/Creat Ratio 23.9 RATIO (10-20); Calcium,Total 9.0 mg/dL (7.6-11.0); Carbon Dioxide 22.6 mmol/L (21.0-32.0); Chloride 102 mmol/L (98-108); Cholesterol 130 mg/dL (<=200); Free T3 3.1 pg/mL (2.18-3.98); Globulin 2.7 g/dL (2.2-4.2); Glucose 84 mg/dL (70-99); Low Density Lipoprotein Calc. 60 mg/dL; Potassium 3.7 mmol/L (3.3-5.1); Triglycerides 77 mg/dL; Very Low Density Lipoprotein 15 mg/dL (5-40); cholesterol:hdl ratio screen 2.36
== END | disposition home or self-care (01) ==
LOC: LAB 14:36
PROVIDERS: PCP Family Medicine; Referring Provider Family Medicine; Visit Provider Family Medicine
DX: Z13.220 Encounter for screening for lipoid disorders (principal); Z13.1 Encounter for screening for diabetes mellitus; Z51.81 Encounter for therapeutic drug level monitoring; E03.9 Hypothyroidism, unspecified
CPT/HCPCS: 36415; 80053; 80061; 84439; 84443; 84481; 85025